=== PATIENT | male | born 1975 | race Caucasian/White ===

== ENCOUNTER 2017-01-22 06:50 | Emergency (ER) | payer OTHER ==
[2017-01-22 09:29] VITALS: BP 118/64
== END 2017-01-22 09:29 | disposition home or self-care (01) ==
LOC: ED 06:50
DX: J98.01 Acute bronchospasm (principal); G47.30 Sleep apnea, unspecified; I10 Essential (primary) hypertension
CPT/HCPCS: 36600; 94150

== ENCOUNTER 2018-08-21 16:20 | Emergency (ER) | payer OTHER ==
[~2018-08-21] VITALS: Ht 167.6 cm; Wt 126.3 kg
[2018-08-21 16:44] VITALS: Ht 167.6 cm; Wt 126.3 kg
[2018-08-21 17:45] VITALS: BP 119/74
== END 2018-08-21 17:45 | disposition home or self-care (01) ==
LOC: ED 16:20
DX: J02.9 Acute pharyngitis, unspecified (principal); K21.9 Gastro-esophageal reflux disease without esophagitis; I10 Essential (primary) hypertension; R10.11 Right upper quadrant pain; F41.9 Anxiety disorder, unspecified; Z88.6 Allergy status to analgesic agent